=== PATIENT | female | born 1945 | race Caucasian/White ===

== ENCOUNTER → 2016-10-09 | Outpatient (CLI) | payer MEDICARE ==
[2016-10-09 13:15] VITALS: BP 151/78; PULSE 81; RESP 16; TEMP 97
--- NOTE | 2016-10-10 14:05 | P.PN ---
Subjective This is follow-up visit for this patient with a history of severe and chronic low back pain secondary to lumbar degenerative disc diseases , lumbar spondylosis with facet arthropathy, failed back surgery syndrome , sacroiliitis , status post left sacroiliac joint steroid injection , she get good pain relief after the injection, today she is complaining of increased severe low back pain bilaterally, more on the right side, is, currently taking these medications 1-mobic 15 mg daily 2- ultram 50 mg every 6 hours Patient denies any side effects of the medication, denies excessive drowsiness or sleepiness, denies suicidal ideation, and reports that the current pain medication is NOT helping To control the pain and improve activity of daily living Patient denies any motor or sensory deficit , patient denies any fever or night sweats, denies any change in the bowel movements or urination Physical Examinations : 1-Constitutiona : Cooperative , not in acute distress . 2-HEENT : nech ; supple , no Lymphadenopathy , no Thyromegaly , normal thyroid size . eyes : no ptosis , no icterus, no photophobia . ENT : normal of hearing , normal oropharynx , no Thrush . 3- Respiratory : Chest clear to auscultations Bilaterally , no wheezing , no Rhonchi . 4- Cardiovascular : regular rate and rhythem , S1 , S2 , no S3 , no S4. 5- Gastrointestinal : abdomen soft no tenderness , bowel sounds positive all four quadrents , no organomegally . 6- Genitourinary : Defferred . 7- neurologic : Cranial nerve II to XII intact , no focal neurological deffecit . 8-psychatric : alert , oriented X 3 , appropriate affect , intact judgment and insight . 9-Lymphatic : no Lymphadenopathy . 10- musculoskeltal : exams of the cervical spine = motor strength normal bilateral upper extremit exams of the Lumber spine = motor strength lower extremities ,thigh and legs .5/5 deep tendon reflexes : normal Knee Jerk , normal ankle Jerk . lumber facet Loading Test positive strait leg raising test positive at 30 degree , RT ,LT , Fabere test positive RT and positive LT . Range of motion: Range of motion in flexion of the lumbar spine 30 degrees Range of motion range of motion of extension of the lumbar spine 10 Sever tenderness over the Sacroiliac joint on the Right , and Left side Assessment and plan = - Chronic low back pain secondary to lumbar degenerative disc disease , lumbar spondylosis with facet arthropathy without myelopathy , - Bilateral sacroiliitis - diagnoses, prognosis, and treatment options including but not limited to physical therapy, surgical interventions, interventional therapies , and medication management including narcotics and adjuvant medication were discussed with the patient and all The questions answered, and will be scheduled to have bilateral sacroiliac joint steroid injection fluoroscopy guidance, if she gets good pain relief, consider doing radiofrequency ablation of the sacroiliac joint, meanwhile patient should continue getting Her pain medication from her primary care Objective - Vital Signs Vital signs: Vital Signs Temp 97 F L 10/09/16 13:04 Pulse 81 10/09/16 13:04 Resp 16 10/09/16 13:04 BP 151/78 10/09/16 13:04 Pulse Ox 96 10/09/16 13:04 Intake & Output 10/09/16 10/10/16 10/10/16 18:59 06:59 18:59 Weight 113.398 kg
== END | disposition home or self-care (01) ==
LOC: PNWHC3 12:45
PROVIDERS: ATTEND Specialist
DX: M51.36 Other intervertebral disc degeneration, lumbar region (principal); M47.816 Spondylosis without myelopathy or radiculopathy, lumbar region; M46.86 Other specified inflammatory spondylopathies, lumbar region; M46.1 Sacroiliitis, not elsewhere classified; G89.29 Other chronic pain
CPT/HCPCS: 99211

== ENCOUNTER 2016-10-13 12:20 | Day surgery (SDC) | payer MEDICARE ==
[2016-10-12 09:51] VITALS: BMI 38.5
[~2016-10-13 12:20] MED LIST: LACTATED RINGERS 1,000 ML IV SCH
[2016-10-13] MEDS ORDERED: LIDOCAINE 1% 20 ML VIAL (10MG/ML) FOR IV START INTRADERMA ONE (12:53)
[2016-10-13 13:06] VITALS: RESP 16; TEMP 97.8
[2016-10-13] MEDS ORDERED: MIDAZOLAM 2 MG/2 ML VIAL ONE (13:45)
[2016-10-13] MEDS ORDERED: BUPIVACAINE (PF) 0.75% 30 ML VIAL ONE (13:45)
[2016-10-13] MEDS ORDERED: fentaNYL (PF) 50 MCG/ML 2 ML AMP ONE (13:45)
[2016-10-13] MEDS ORDERED: TRIAMCINOLONE ACETONIDE 40 MG/ML 1 ML VIAL ONE (13:45)
--- NOTE | 2016-10-13 14:07 | P.PCN ---
Date of Procedure: 10/13/16 Procedure(s) Performed: Preoperative diagnoses= 1-bilateral sacroiliitis. 2- lumbar spondylosis with lumbar facet arthropathy. 3- failed back surgeries syndrome lumbar area Postoperative diagnoses= same as preoperative diagnosis. Procedure= bilateral sacroiliac joint steroid injection under fluoroscopic guidance. Anesthesia= conscious sedation with Versed 2 mg and fentanyl 100 micrograms and local infiltration with lidocaine 1% 4 ml Estimated blood loss=minimal. Procedure indication= the patient had a history of severe chronic low back pain , diagnosed with sacroiliitis and lumbar sacral facet arthropathy unresponsive to conservative treatment. Procedure description= the patient was seen and identified in the preoperative holding area, risks and benefits and alternative of the procedure and possible complications discussed with the patient, and he agreed with the preceding, patient signed the consent, an IV was started, and vital signs were monitored and were stable throughout the procedure, patient was placed in the prone position or table and the lumbosacral area was prepped and draped with a sterile fashion, vital signs were closely monitored during the procedure, the fluoroscopy camera was placed in the contralateral oblique view on the right sacroiliac joint and the lower part of the joint was identified, local infiltration of the skin and subcutaneous tissue with lidocaine 1% 2 mL then a 22-gauge Quincke-type spinal needle advanced slowly under fluoroscopy and placed in the posterior and inferior border of the right sacroiliac joint, placement confirmed with AP and lateral view, and after appropriate needle placement confirmed and after negative aspiration for heme and CSF and there was no paresthesia during the injection, 3 ml of Marcaine 0.5% and 40 mg of Kenalog injected after negative aspiration, the needle removed, and the entire same procedure was repeated for the left sacroiliac joint Patient tolerated the procedure well without any complication, The patient returned to supine position after the back was cleaned and a Band- Aid applied, the patient transported to recovery room in stable condition and he was monitored for 30 minutes before he was discharged home and then patient was reexamined before going home and patient was discharged in stable condition and patient will follow up with the pain clinic in a few weeks
[2016-10-13] MEDS ORDERED: IV FLUID CONTINUATION 1,000 ML IV ONE (14:15)
[2016-10-13 14:44] VITALS: BP 136/74; PULSE 81
--- NOTE | 2016-10-17 17:58 | FL ---
EXAMINATION TYPE: FL guided pain mgmt statistic DATE OF EXAM: 10/13/2016 2:11 PM CLINICAL HISTORY: Low back and sacroiliac joint pain. TECHNIQUE: Fluoroscopy. COMPARISON: None. FINDINGS: Fluoroscopic guidance was provided during pain relief procedure performed by Dr. Beltran . A total of 12 seconds of fluoroscopic time was utilized during the procedure and two spot images a re acquired. Images acquired shows needle localization at level of bilateral sacroiliac joints. IMPRESSION: As Above.
== END 2016-10-13 15:00 | disposition home or self-care (01) ==
LOC: ORPAIN 12:20
PROVIDERS: ATTEND Specialist
DX: M46.1 Sacroiliitis, not elsewhere classified (principal); M47.896 Other spondylosis, lumbar region; M46.96 Unspecified inflammatory spondylopathy, lumbar region; M96.1 Postlaminectomy syndrome, not elsewhere classified; Z88.1 Allergy status to other antibiotic agents; Z91.030 Bee allergy status; Z91.041 Radiographic dye allergy status; Z91.09 Other allergy status, other than to drugs and biological substances
CPT/HCPCS: 99152; J2250; J3301; J3010; G0260

== ENCOUNTER 2016-11-13 06:16 | Day surgery (SDC) | payer MEDICARE ==
[2016-11-10 08:40] VITALS: BMI 38.5
[2016-11-13 06:43] VITALS: RESP 18; TEMP 97.5
[2016-11-13] MEDS ORDERED: LIDOCAINE 1% 20 ML VIAL (10MG/ML) FOR IV START INTRADERMA ONE (06:48)
[2016-11-13] MEDS ORDERED: MIDAZOLAM 2 MG/2 ML VIAL ONE (07:19)
[2016-11-13] MEDS ORDERED: fentaNYL (PF) 50 MCG/ML 2 ML AMP ONE (07:19)
[2016-11-13] MEDS ORDERED: BUPIVACAINE (PF) 0.5% 30 ML VIAL ONE (07:19)
[2016-11-13] MEDS ORDERED: DEXAMETHASONE SOD PHOSPHATE 10 MG/ML 1 ML VIAL ONE (07:19)
--- NOTE | 2016-11-13 07:31 | P.PCN ---
Date of Procedure: 11/13/16 Preoperative Diagnosis: Postoperative Diagnosis: Procedure(s) Performed: Preoperative diagnoses= 1-bilateral sacroiliitis. 2-lumbar spondylosis. 3- . Failed Back surgery syndrome and lumbar area Postoperative diagnoses= same as preoperative diagnosis. Procedure= bilateral sacroiliac joint steroid injection under fluoroscopic guidance. Anesthesia= conscious sedation with Versed 2 mg and fentanyl 100 micrograms and local infiltration with lidocaine 1% 4 ml Estimated blood loss=minimal. Procedure indication= the patient had a history of severe chronic low back pain , diagnosed with sacroiliitis and lumbar sacral facet arthropathy unresponsive to conservative treatment. Procedure description= the patient was seen and identified in the preoperative holding area, risks and benefits and alternative of the procedure and possible complications discussed with the patient, and he agreed with the preceding, patient signed the consent, an IV was started, and vital signs were monitored and were stable throughout the procedure, patient was placed in the prone position or table and the lumbosacral area was prepped and draped with a sterile fashion, vital signs were closely monitored during the procedure, the fluoroscopy camera was placed in the contralateral oblique view on the right sacroiliac joint and the lower part of the joint was identified, local infiltration of the skin and subcutaneous tissue with lidocaine 1% 2 mL then a 22-gauge Quincke-type spinal needle advanced slowly under fluoroscopy and placed in the posterior and inferior border of the right sacroiliac joint, placement confirmed with AP and lateral view, and after appropriate needle placement confirmed and after negative aspiration for heme and CSF and there was no paresthesia during the injection, 3 ml of Marcaine 0.5% and 10 mg Dexamethasone injected after negative aspiration, the needle removed, and the entire same procedure was repeated for the left sacroiliac joint Patient tolerated the procedure well without any complication, The patient returned to supine position after the back was cleaned and a Band- Aid applied, the patient transported to recovery room in stable condition and he was monitored for 30 minutes before he was discharged home and then patient was reexamined before going home and patient was discharged in stable condition and patient will follow up with the pain clinic in a few weeks Implants: Indications for Procedure: Operative Findings: Description of Procedure:
[2016-11-13] MEDS ORDERED: IV FLUID CONTINUATION 1,000 ML IV ONE (07:38)
--- NOTE | 2016-11-13 07:39 | FL ---
EXAMINATION TYPE: FL guided pain mgmt statistic DATE OF EXAM: 11/13/2016 HISTORY: Flouroscopy time 7 seconds of fluoroscopy provided. IMPRESSION: 1. Fluoroscopy time.
[2016-11-13 07:41] VITALS: PULSE 81
[2016-11-13 07:57] VITALS: BP 143/69
== END 2016-11-13 08:27 | disposition home or self-care (01) ==
LOC: ORPAIN 06:16
PROVIDERS: ATTEND Specialist
DX: G89.29 Other chronic pain (principal); M46.1 Sacroiliitis, not elsewhere classified; M47.896 Other spondylosis, lumbar region; M96.1 Postlaminectomy syndrome, not elsewhere classified; M46.96 Unspecified inflammatory spondylopathy, lumbar region; E66.01 Morbid (severe) obesity due to excess calories; Z88.1 Allergy status to other antibiotic agents; Z91.030 Bee allergy status; Z91.041 Radiographic dye allergy status; Z88.8 Allergy status to other drugs, medicaments and biological substances; Z91.048 Other nonmedicinal substance allergy status
CPT/HCPCS: J2250; J1100; J3010; G0260

== ENCOUNTER → 2016-12-26 | Outpatient (CLI) | payer MEDICARE ==
[2016-12-26 13:19] VITALS: BP 133/74; PULSE 94; RESP 18; TEMP 98.2
--- NOTE | 2016-12-26 14:03 | P.PN ---
Progress Note - Text Patient returns for followup for chronic back pain without significant radiation to lower extremities. Patient underwent SIJ injections x 2, with excellent relief from first and very poor relief from second. Patient continues on only Mobic medications from PCP for pain with some relief. Patient continues . Patient denies adverse drug effects from medications. Today, pt denies new-onset weakness, bowel/bladder incontinence, or any other signs or symptoms of cauda equina syndrome. There are no signs of acute intoxication, and no indications of medication diversion or overuse. In addition to above, 13-point review of systems is also negative for chest pain , shortness of breath, changes in vision, changes in hearing, new onset weakness , abdominal pain, diarrhea, extreme fatigue, malaise, fever, skin changes, homicidal or suicidal ideation, or bowel or bladder incontinence. Vital Signs: Reviewed in EMR Gen: WDWN, AAOx3, NAD HEENT: NCAT, EOMI, hearing grossly normal Pulm: resp unlabored Abd: soft, NT, ND Neck: supple, trachea midline ROM in flexion lumbar spine: reduced ROM in extension lumbar spine: reduced Lumbar paravertebral tenderness: + Facet loading: ++ bilaterally SI joint tenderness: + R >> L side Wilner's: ++ R > L Neuro: CN II-XII grossly intact, muscle strength lower extremities PRESERVED Imaging: Reviewed in EMR Assessment: 1. lumbar spondylosis without myelopathy 2. sacroiliac joint dysfunction 3. chronic pain syndrome Plan: 1. Explanation: Opioid and psychological risk scores were reviewed. Diagnoses , prognoses, and multiple treatment options including but not limited to physical therapy, interventional therapies, adjuvant medical therapies, narcotic medication therapies, and surgery were discussed with the patient and all questions were answered to the patient's satisfaction. 2. Opioid agreement: no narcotics prescribed 3. Counseling: The patient was counseled extensively on BODY MASS INDEX and EXERCISE. Specifically, the patient was instructed regarding the importance of smoking cessation, obesity, and exercise in the context of both chronic pain and overall health. 4. Procedures: bilateral SIJ injection #2, then schedule RFA if relief 5. Consultations: None 6. Investigations: none 7. Medications: None prescribed 8. Disposition: f/u for procedure as scheduled PQRS measures: 1-Patient's medications are documented in the chart. 2-Tobacco use is positive, counseling given 3-Patient has had a pneumococcal vaccine. 4-Advanced care planning discussed, patient unable to give. 5-Opioid contract signed with the patient. 6-Pain positive, follow-up visit or procedure scheduled 7-Patient's blood pressure measured and documented, within normal limits. 8-Patient's weight was measured, and body mass index ABOVE the normal limits, and counseling was done. Patient instructed to follow up with PCP. 9-Patient WAS NOT identified as an unhealthy alcohol user.
== END | disposition home or self-care (01) ==
LOC: PNWHC3 13:00
PROVIDERS: ATTEND Anesthesiology
DX: M47.816 Spondylosis without myelopathy or radiculopathy, lumbar region (principal); M53.3 Sacrococcygeal disorders, not elsewhere classified; G89.4 Chronic pain syndrome; Z79.1 Long term (current) use of non-steroidal anti-inflammatories (NSAID)
CPT/HCPCS: 99211

== ENCOUNTER 2017-11-05 07:52 | Day surgery (SDC) | payer MEDICARE ==
[2017-10-04 15:09] VITALS: BMI 39.1
[2017-11-05] MEDS ORDERED: LIDOCAINE 1% 20 ML VIAL (10MG/ML) FOR IV START INTRADERMA ONE (08:30)
[2017-11-05 08:32] VITALS: RESP 18; TEMP 97.7
--- NOTE | 2017-11-05 09:26 | P.PCN ---
Date of Procedure: 11/05/17 Procedure(s) Performed: Preoperative diagnoses= 1-bilateral sacroiliitis. 2-failed back surgery syndrome lumbar area. 3-lumbar degenerative disc disease Postoperative diagnoses= same as preoperative diagnosis. Procedure= bilateral sacroiliac joint steroid injection under fluoroscopic guidance. Anesthesia= moderate sedation with Versed 2 mg and fentanyl 100 micrograms and local infiltration with lidocaine 1% 4 ml Estimated blood loss=minimal. Procedure indication= the patient had a history of severe chronic low back pain , diagnosed with sacroiliitis and lumbar sacral facet arthropathy unresponsive to conservative treatment. Procedure description= the patient was seen and identified in the preoperative holding area, risks and benefits and alternative of the procedure and possible complications discussed with the patient, and he agreed with the preceding, patient signed the consent, an IV was started, and vital signs were monitored and were stable throughout the procedure, patient was placed in the prone position or table and the lumbosacral area was prepped and draped with a sterile fashion, vital signs were closely monitored during the procedure, the fluoroscopy camera was placed in the contralateral oblique view on the right sacroiliac joint and the lower part of the joint was identified, local infiltration of the skin and subcutaneous tissue with lidocaine 1% 2 mL then a 22-gauge Quincke-type spinal needle advanced slowly under fluoroscopy and placed in the posterior and inferior border of the right sacroiliac joint, placement confirmed with AP and lateral view, and after appropriate needle placement confirmed and after negative aspiration for heme and CSF and there was no paresthesia during the injection, 3 ml of Marcaine 0.5% and 40 mg of Kenalog injected after negative aspiration, the needle removed, and the entire same procedure was repeated for the left sacroiliac joint Patient tolerated the procedure well without any complication, The patient returned to supine position after the back was cleaned and a Band- Aid applied, the patient transported to recovery room in stable condition and he was monitored for 30 minutes before he was discharged home and then patient was reexamined before going home and patient was discharged in stable condition and patient will follow up with the pain clinic in a few weeks
[2017-11-05] MEDS ORDERED: IV FLUID CONTINUATION 1,000 ML IV ONE (09:48)
--- NOTE | 2017-11-05 09:51 | FL ---
Fluoroscopy HISTORY: Pain 27 seconds fluoroscopy time supplied to the referring clinician. 2 intraoperative C-arm images docum ent the procedure. See dictated report from anesthesia.
[2017-11-05 09:53] VITALS: BP 137/84; PULSE 75
== END 2017-11-05 10:25 | disposition home or self-care (01) ==
LOC: ORPAIN 07:52
PROVIDERS: ATTEND Specialist
DX: M46.1 Sacroiliitis, not elsewhere classified (principal); M96.1 Postlaminectomy syndrome, not elsewhere classified; M51.36 Other intervertebral disc degeneration, lumbar region; G89.29 Other chronic pain; M47.816 Spondylosis without myelopathy or radiculopathy, lumbar region; I10 Essential (primary) hypertension; E66.01 Morbid (severe) obesity due to excess calories; Z88.1 Allergy status to other antibiotic agents; Z91.030 Bee allergy status; Z91.041 Radiographic dye allergy status; Z68.39 Body mass index [BMI] 39.0-39.9, adult; Z86.718 Personal history of other venous thrombosis and embolism; Z85.41 Personal history of malignant neoplasm of cervix uteri
CPT/HCPCS: J2250; J3301; J3010; G0260; 99152

== ENCOUNTER 2017-12-17 06:54 | Day surgery (SDC) | payer MEDICARE ==
[2017-12-12 10:37] VITALS: BMI 39.1
[2017-12-17 07:43] VITALS: RESP 16; TEMP 97.8
[2017-12-17] MEDS ORDERED: LIDOCAINE 1% 20 ML VIAL (10MG/ML) FOR IV START INTRADERMA ONE (07:48)
--- NOTE | 2017-12-17 08:04 | P.PCN ---
Date of Procedure: 12/17/17 Surgeon: Jeff Rolon Description of Procedure: Procedure(s) Performed: Preoperative diagnoses= 1-bilateral sacroiliitis. 2-failed back surgery syndrome lumbar area. 3-lumbar degenerative disc disease Postoperative diagnoses= same as preoperative diagnosis. Procedure= bilateral sacroiliac joint steroid injection under fluoroscopic guidance. Anesthesia= moderate sedation with Versed 2 mg and fentanyl 100 micrograms and local infiltration with lidocaine 1% 4 ml Estimated blood loss=minimal. Procedure indication= the patient had a history of severe chronic low back pain , diagnosed with sacroiliitis and lumbar sacral facet arthropathy unresponsive to conservative treatment. Procedure description= the patient was seen and identified in the preoperative holding area, risks and benefits and alternative of the procedure and possible complications discussed with the patient, and he agreed with the preceding, patient signed the consent, an IV was started, and vital signs were monitored and were stable throughout the procedure, patient was placed in the prone position or table and the lumbosacral area was prepped and draped with a sterile fashion, vital signs were closely monitored during the procedure, the fluoroscopy camera was placed in the contralateral oblique view on the right sacroiliac joint and the lower part of the joint was identified, local infiltration of the skin and subcutaneous tissue with lidocaine 1% 2 mL then a 22-gauge 3.5 inch Quincke-type spinal needle advanced slowly under fluoroscopy and placed in the posterior and inferior border of the right sacroiliac joint, placement confirmed with AP and lateral view, and after appropriate needle placement confirmed and after negative aspiration for heme and CSF and there was no paresthesia during the injection, 3 ml of Ropivacaine 0.5% and 20 mg of Kenalog injected after negative aspiration, the needle removed, and the entire same procedure was repeated for the left sacroiliac joint Patient tolerated the procedure well without any complication. The total dose of steroids given in this procedure is 40 mg of Kenalog. The patient returned to supine position after the back was cleaned and a Band- Aid applied, the patient transported to recovery room in stable condition and he was monitored for 30 minutes before he was discharged home and then patient was reexamined before going home and patient was discharged in stable condition and patient will follow up with the pain clinic in a few weeks
[2017-12-17 08:36] VITALS: BP 113/65; PULSE 88
--- NOTE | 2017-12-17 09:18 | FL ---
EXAMINATION TYPE: FL guided pain mgmt statistic DATE OF EXAM: 12/17/2017 FLUOROSCOPY Fluoroscopy time of 11 seconds was used during bilateral SI joint injection. 2 image/s document/s th e procedure.
== END 2017-12-17 08:56 | disposition home or self-care (01) ==
LOC: ORPAIN 06:54
PROVIDERS: ATTEND Anesthesiology
DX: G89.29 Other chronic pain (principal); M46.1 Sacroiliitis, not elsewhere classified; M96.1 Postlaminectomy syndrome, not elsewhere classified; M51.36 Other intervertebral disc degeneration, lumbar region; I10 Essential (primary) hypertension; J45.909 Unspecified asthma, uncomplicated; E66.01 Morbid (severe) obesity due to excess calories; Z68.39 Body mass index [BMI] 39.0-39.9, adult; Z88.8 Allergy status to other drugs, medicaments and biological substances; Z91.09 Other allergy status, other than to drugs and biological substances; Z88.1 Allergy status to other antibiotic agents
CPT/HCPCS: J2250; J3301; J3010; G0260; 99152

== ENCOUNTER → 2018-01-02 | Outpatient (CLI) | payer MEDICARE ==
[2018-01-02 13:29] VITALS: BP 139/78; PULSE 88; RESP 20; TEMP 98.1
--- NOTE | 2018-01-03 08:05 | P.PAINPG ---
Subjective Progress Note Date: 01/02/18 Principal diagnosis: Is a very pleasant 72-year-old woman with a history of significant back pain and previous back surgery who presents today for treatment of her low back pain. She reports that her pain has been significant recently she did receive some benefit from her previous sacroiliac joint injections. Objective - Vital Signs Vital signs: Vital Signs Temp 98.1 F 01/02/18 13:18 Pulse 88 01/02/18 13:18 Resp 20 01/02/18 13:18 BP 139/78 01/02/18 13:18 Pulse Ox Intake & Output 01/02/18 01/03/18 01/03/18 18:59 06:59 18:59 Weight 113.398 kg - Exam General: Patient is not sedated. She appears in no acute distress. She answers all questions appropriate. Respiratory: Breathing is unlabored and without any audible wheezes Cardiac: Regular in rate and rhythm Abdomen: Soft nontender, nondistended Extremities: No cyanosis clubbing or edema Musculoskeletal: No focal motor deficits in the upper or lower extremities. She walks with a hunched over gait. She is unable to assume a fully erect position. Neurologic: No focal sensory deficits in the upper or lower extremities. Reflexes are normal and intact bilaterally in the extremities Assessment and Plan (1) Bilateral sacroiliitis Narrative/Plan: Medications: We will trial the patient on tramadol. I will give her prescription for 1 tablet twice a day when necessary. She will sign the [place] start talking form today. I reviewed her mouse and it reveals expected results. Interventions: I believe the patient would benefit from radio frequency ablation of the sacroiliac joint. We'll schedule this for her in the future. Referrals: None Testing ordered: None Psychological: No referrals given today. Current Visit: Yes Status: Acute Code(s): M46.1 - SACROILIITIS, NOT ELSEWHERE CLASSIFIED SNOMED Code(s): 81353535 (2) Lumbar post-laminectomy syndrome Current Visit: Yes Status: Acute Code(s): M96.1 - POSTLAMINECTOMY SYNDROME, NOT ELSEWHERE CLASSIFIED SNOMED Code(s): 065618087 PQRS Measure Charge Sheet Measure #130: Documentation of Current Meds in Medical Chart: Patient's medications documented in chart Measure #226: Tobacco Use: Screen & Cessation Intervention: Pt not a tobacco user Measure #111: Pneumonia Vaccination: Pneumococcal vaccine NOT administered or previously given Measure #47: Advance Care Plan: Advance care planning discussed & documented, pt chose/unable to give Measure #412: Opioid Treatment Agreement: Documented signed opioid trtmnt agreemnt min once during opioid trtmnt Measure #408: Opioid Therapy Follow-up Evaluation: Patient had f/u eval minimum every 3 months during opioid therapy Measure #317: Preventitive Care & Scrn High Bld Press & F/U: Pre-hypertensive or hypertensive BP documented, pt will f/u with PCP Measure #128: Body Mass Index (BMI) Screening & Follow-up: BMI documented ABOVE normal parameters - f/u documented Measure #131: Pain Assessment & Follow-up: Pain positive & plan documented Measure #431: Unhealthy Alcohol Use Preventative Care & Scrn: Patient not identified as an unhealthy alcohol user PQRS Narrative: Smoking Status Current some day smoker Do You Want the Pneumonia Vaccine Up to Date Vaccine AT THIS TIME? Blood Pressure 139/78 Pain Intensity [Lower Back] 4 Scale Used Numeric (1 - 10) Hx Alcohol Use (MH) No Home Medications: Ambulatory Orders Thyroid,Pork [[place] Thyroid] 180 mg PO DAILY 12/16/13 Meloxicam [Mobic] 15 mg PO DAILY 08/10/14 Lisinopril [Prinivil] 20 mg PO DAILY 09/02/14 Fluticasone Nasal Spring [Flonase Nasal Spring] 2 spr EA NOSTRIL DAILY 08/11/15 Multivit-Min/Iron/Folic/Lutein [Centrum Silver Women Tablet] 1 each PO DAILY 09/17 Sennosides [Senna] 8.6 mg PO HS 03/07/16 Magnesium 500 mg PO DAILY 03/27/16 amLODIPine [Norvasc] 10 mg PO DAILY 10/09/16 Acetaminophen Tab [Tylenol Tab] 1,000 mg PO Q6HR PRN 10/13/16 cycloSPORINE [Restasis] 1 drop BOTH EYES DAILY 12/26/16 Controlled Substance Measures - Controlled Substance Measures Is patient prescribed a controlled substance at discharge?: Yes When asked, does pt state using other controlled substances?: No If prescribed controlled substance>3 days was MAPS reviewed?: Yes If Rx opioid, was Start Talking consent form obtained?: Yes
== END | disposition home or self-care (01) ==
LOC: PNWHC3 13:00
PROVIDERS: ATTEND Pain Medicine Pain Medicine
DX: M96.1 Postlaminectomy syndrome, not elsewhere classified (principal); M46.1 Sacroiliitis, not elsewhere classified; F17.200 Nicotine dependence, unspecified, uncomplicated; Z79.1 Long term (current) use of non-steroidal anti-inflammatories (NSAID); Z79.899 Other long term (current) drug therapy
CPT/HCPCS: 99211

== ENCOUNTER 2018-02-11 06:23 | Day surgery (SDC) | payer MEDICARE ==
[2018-02-05 15:38] VITALS: BMI 38.8
[2018-02-11 07:14] VITALS: TEMP 98.3
[2018-02-11] MEDS ORDERED: LIDOCAINE 1% 20 ML VIAL (10MG/ML) FOR IV START INTRADERMA ONE (07:26)
--- NOTE | 2018-02-11 07:59 | P.PCN ---
Date of Procedure: 02/11/18 Surgeon: Jeff Rolon Disposition: PACU Description of Procedure: Pre and POSTOPERATIVE DIAGNOSIS: 1-Lumbosacral spondylosis 2-Bilateral sacroiliitis, and sacroiliac joint dysfunction 3-morbid obesity 4-failed back surgery syndrome PROCEDURES: 1. Left radiofrequency thermocoagulation/ablation of the L5 dorsal ramus. 2. Left multi-site radiofrequency thermocoagulation/ablation of the S1, S2, and S3 lateral branchs. The procedure was performed using fluoroscopic guidance during needle placement to assure proper position and maximize safety. . ANESTHESIA: Local Anesthesia, conscious sedation with Versed,and Fentanyl EBL: Negligible INDICATION/MEDICAL NECESSITY: History of low back pain secondary to Lumbosacral Spondylosis and lumbosacral arthropathy unresponsive to more conservative treatments. The patient reported more than 50% relief of pain symptoms following 2 previous diagnostic blocks with Bupivacaine. PROCEDURE DESCRIPTION: The patient was seen and identified in the preoperative area. Risks, benefits, complications, and alternatives were discussed with the patient. The patient agreed to proceed with the procedure and signed the consent. Vital signs were checked before and after the procedure and they remained stable. Patient ambulated to the procedure room and time out was completed. The patient was placed in the prone position on the procedure table and a pillow was placed under the abdomen to reduce lumbar lordosis. The lumbosacral area was prepped and draped in the usual sterile fashion. Critical pause was taken. L5 Dorsal Ramus RF: Using left oblique fluoroscopy, the junction of the transverse process and the superior articular process of the left S1 vertebra, which correspond to the fluoroscopic image of the "eye of the Bart dog" was identified. Subsequently, a 10-cm 18-gauge radiofrequency cannula with a 10-mm active tip was advanced under fluoroscopic guidance until contact was made with periosteum. At this level, Motor stimulation was done at 2 Hz with stimulation of mulitifidus muscle contration at 1.5 volts. No radicular symptoms or paresthesias were produced during the testing. Subsequently, the L5 dorsal ramus was subjected to a radiofrequency ablation at a mode of 90 seconds at 80 degrees Celsius after negative motor and sensory testing and after injecting with a solution consisting of 0.5% ropivacaine with 40 mg of Depo-Medrol 0.5 ml injected in each cannula S1, S3, and S3 Lateral Branch RF: The lateral margins of the left S1, S2, and S3 foramina were identified using AP fluoroscopy. Under fluoroscopic guidance, three 10-cm 18-gauge radiofrequency cannula with a 10-mm active tip were inserted at 8-10 mm peripheral to the posterior S1 foramen, at various locations using clock-face coordinates. The center of the clock was registered at the lateral margin of the foramen. The 6:30, 8:00, and 9:30 oclock positions were used. At this level , Motor stimulation was done at 2 Hz. No radicular symptoms or paresthesias were produced during the testing. Subsequently, the S1 lateral branch was subjected to a radiofrequency ablation at a mode of 90 seconds at 80 degrees Celsius at the 3 levels after negative motor testing and after injecting a solution consisting of 0.5% ropivacaine with 40 mg of Kenalog 0.5 ml injected in each cannula. The same procedure was performed at the level of the S2 foramen. For the S3 foramen, only the 6:30 and 8:00 oclock positions were used. Motor testing followed by radiofrequency ablation were performed as described for the S1 and S2 foramina. The needle was withdrawn intact after each injection. COMPLICATIONS: The patient tolerated the procedure well without any acute complications. DISPOSTION/PLAN: Patient was reexamined prior to discharge. Patient was observed for 30 minutes in the recovery area and was discharged home, accompanied by an adult, after meeting discharged criteria. Discharge instructions were give to the patient by the staff. Patient was specifically instructed not to drive today and to rest for the rest of the day. The patient will schedule a follow up visit in the clinic in 4 weeks.
[2018-02-11] MEDS ORDERED: IV FLUID CONTINUATION 750 ML IV ONE (08:09)
[2018-02-11 08:24] VITALS: BP 106/71; PULSE 79; RESP 16
--- NOTE | 2018-02-11 08:32 | FL ---
EXAMINATION TYPE: FL guided pain mgmt statistic DATE OF EXAM: 02/11/2018 HISTORY: Pain 29 sec fl time used during left si joint rfa
== END 2018-02-11 08:47 | disposition home or self-care (01) ==
LOC: ORPAIN 06:23
PROVIDERS: ATTEND Anesthesiology
DX: M47.817 Spondylosis without myelopathy or radiculopathy, lumbosacral region (principal); M46.1 Sacroiliitis, not elsewhere classified; M53.3 Sacrococcygeal disorders, not elsewhere classified; E66.01 Morbid (severe) obesity due to excess calories; Z68.38 Body mass index [BMI] 38.0-38.9, adult; M96.1 Postlaminectomy syndrome, not elsewhere classified; Z88.1 Allergy status to other antibiotic agents; Z91.041 Radiographic dye allergy status
CPT/HCPCS: 64635; 64636; J2250; J3301; J3010; 99152

== ENCOUNTER → 2018-04-03 | Outpatient (CLI) | payer MEDICARE ==
[2018-04-03 12:50] VITALS: BP 122/51; PULSE 85; RESP 18
--- NOTE | 2018-04-03 13:17 | P.PN ---
Subjective Progress Note Date: 04/03/18 This is a pleasant 72-year-old morbidly obese lady with history of chronic lower back pain due to lumbar spondylosis and degenerative disc disease. The patient has significant relief of her pain after the last lumbar medial branch RFA. She still uses tramadol twice a day if needed for her pain and she would like to get a back brace to help her with this pain when it exacerbates. Today, pt denies new-onset weakness, bowel/bladder incontinence, or any other signs or symptoms of cauda equina syndrome. There are no signs of acute intoxication, and no indications of medication diversion or overuse. In addition to above, 13-point review of systems is also negative for chest pain , shortness of breath, changes in vision, changes in hearing, new onset weakness , abdominal pain, diarrhea, extreme fatigue, malaise, fever, skin changes, homicidal or suicidal ideation, or bowel or bladder incontinence. Vital Signs: Reviewed in EMR Gen: AAOx3, NAD HEENT: PERRLA,hearing grossly normal Pulm: resp unlabored,CTA Heart:S1,S2, No Mur Neck: supple, trachea midline Neuro: CN II-XII grossly intact, Imaging: Reviewed in EMR/chart Assessment: Lumbar spondylosis without myelopathy Lumbar DDD Morbid obesity Plan: 1. Explanation: Opioid and psychological risk scores were reviewed. Diagnoses , prognoses, and multiple treatment options including but not limited to physical therapy, interventional therapies, adjuvant medical therapies, narcotic medication therapies, and surgery were discussed with the patient and all questions were answered to the patient's satisfaction. 2. Opioid agreement: Signed with the patient and the patient is warned not to use opioids while driving or before driving and not to combine opioids with benzodiazepines or alcohol. 3. Counseling: The patient was counseled extensively on SMOKING CESSATION, BODY MASS INDEX, EXERCISE. Specifically, the patient was instructed regarding the importance of smoking cessation, obesity, and exercise in the context of both chronic pain and overall health. 4. Procedures: None at this point 5. Consultations: None 6. Investigations: None 7. Medications: Tramadol 50 mg twice a day 8. Disposition: Return to clinic in 2 months 9. Maps were reviewed and were appropriate. Objective - Vital Signs Vital signs: Vital Signs Temp Pulse 85 04/03/18 12:38 Resp 18 04/03/18 12:38 BP 122/51 04/03/18 12:38 Pulse Ox 97 04/03/18 12:38 Intake & Output 04/02/18 04/03/18 04/03/18 18:59 06:59 18:59 Weight 113.398 kg
== END | disposition home or self-care (01) ==
LOC: PNWHC3 12:09
PROVIDERS: ATTEND Anesthesiology
DX: M51.36 Other intervertebral disc degeneration, lumbar region (principal); M47.816 Spondylosis without myelopathy or radiculopathy, lumbar region; E66.01 Morbid (severe) obesity due to excess calories; Z68.41 Body mass index [BMI] 40.0-44.9, adult; Z79.891 Long term (current) use of opiate analgesic
CPT/HCPCS: 99211

== ENCOUNTER → 2019-01-22 | Outpatient (CLI) | payer MEDICARE ==
[2019-01-22 11:55] VITALS: BP 110/72; PULSE 83; RESP 18; TEMP 97
--- NOTE | 2019-01-24 09:14 | P.PAINPG ---
Subjective Progress Note Date: 01/22/19 This is a pleasant 73-year-old morbidly obese lady with history of chronic lower back pain due to lumbar spondylosis and degenerative disc disease. We last saw the patient in March 2018. The patient has significant relief of her pain after the last SI joint RFA done on 02/11/2018. She uses tramadol when necessary, about 5-6 times a month with good benefit. She primarily takes it when she goes shopping or goes out to dinner. It significantly helps with function. She reports mild side effects in the form of "vagueness" but is able to tolerate this. She has stopped taking Tylenol as it was not providing any benefit. She has cut down on smoking, and is currently smoking about 1-5 cigarettes per day. She reports that she has some broken skin over the low lumbar area, and does not want to schedule a repeat SI radiofrequency ablation at this time, however she will call us to schedule. Today, pt denies new-onset weakness, bowel/bladder incontinence, or any other signs or symptoms of cauda equina syndrome. There are no signs of acute intoxication, and no indications of medication diversion or overuse. In addition to above, 13-point review of systems is also negative for chest pain, shortness of breath, changes in vision, changes in hearing, new onset weakness, abdominal pain, diarrhea, extreme fatigue, malaise, fever, skin changes, homicidal or suicidal ideation, or bowel incontinence. She does report chronic bladder incontinence. Physical exam: Vitals: Reviewed in EMR GENERAL: Morbidly obese, sitting in wheelchair PSYCH: Mood and affect is appropriate. Awake, alert, and oriented SKIN: Skin color, texture, turgor normal, no rashes or lesions. Patient did not want me to examine area of low back which she reports has a healing skin lesion. HEENT: Normocephalic, atraumatic. EOM intact CV: No pedal edema RESP: Respirations are unlabored, no audible wheezing GI: Abdomen obese MUSCULOSKELETAL: Bilateral lower extremity strength is normal and symmetric. No atrophy or tone abnormalities are noted. Lumbar spine: Straight leg raising in the sitting position is negative for radicular pain. Tenderness to palpation over the lumbar spine and paraspinous eye laterally muscles. Buttocks: Pain to palpation over bilateral PSIS, unable to perform Em test NEUR: No loss of sensation is noted. Cranial nerves grossly intact Assessment: Lumbar spondylosis without myelopathy Lumbar DDD Sacroiliitis Morbid obesity Chronic use of opioid medication Plan: 1. Explanation: Opioid and psychological risk scores were reviewed. Diagnoses, prognoses, and multiple treatment options including but not limited to physical therapy, interventional therapies, adjuvant medical therapies, narcotic medication therapies, and surgery were discussed with the patient and all questions were answered to the patient's satisfaction. 2. Opioid agreement: Signed with the patient and the patient is warned not to use opioids while driving or before driving and not to combine opioids with benzodiazepines or alcohol. 3. Counseling: The patient was counseled extensively on SMOKING CESSATION, BODY MASS INDEX, EXERCISE. Specifically, the patient was instructed regarding the importance of smoking cessation, obesity, and exercise in the context of both chronic pain and overall health. 4. Procedures: None at this point, patient will call to schedule SI radiofrequency ablation after her skin lesions have healed 5. Consultations: None 6. Investigations: None 7. Medications: Tramadol 50 mg when necessary- prescription given for 60 tablets. Her prior prescription for 60 tablets lasted her approximately 8-9 months. I instructed her to discuss with her primary care physician taking over this prescription. 8. Disposition: Return to clinic when necessary for above-mentioned procedure 9. Maps were reviewed and were appropriate. Objective - Vital Signs Vital signs: Vital Signs Temp 97 F L 01/22/19 11:47 Pulse 83 01/22/19 11:47 Resp 18 01/22/19 11:47 BP 110/72 01/22/19 11:47 Pulse Ox 95 01/22/19 11:47 PQRS Measure Charge Sheet Measure #130: Documentation of Current Meds in Medical Chart: Patient's medications documented in chart Measure #226: Tobacco Use: Screen & Cessation Intervention: Pt screened for tobacco use AND intervention given Measure #111: Pneumonia Vaccination: Pneumococcal vaccine administered or previously received Measure #47: Advance Care Plan: Advance care planning discussed & documented, pt chose/unable to give Measure #412: Opioid Treatment Agreement: Documented signed opioid trtmnt agreemnt min once during opioid trtmnt Measure #408: Opioid Therapy Follow-up Evaluation: Patient had NO f/u eval minimum every 3 months during opioid therapy Measure #317: Preventitive Care & Scrn High Bld Press & F/U: Normal blood pressure, f/u not required Measure #128: Body Mass Index (BMI) Screening & Follow-up: BMI documented ABOVE normal parameters - f/u documented Measure #131: Pain Assessment & Follow-up: Pain positive & plan documented, Follow-up PRN Measure #431: Unhealthy Alcohol Use Preventative Care & Scrn: Patient not identified as an unhealthy alcohol user PQRS Narrative: Smoking Status Current every day smoker Blood Pressure 110/72 Pain Intensity [Bilateral 6 Lower Back] Scale Used Numeric (1 - 10) Hx Alcohol Use (MH) No Home Medications: Ambulatory Orders Thyroid,Pork [[place] Thyroid] 180 mg PO DAILY 12/16/13 Lisinopril [Prinivil] 20 mg PO 2100 09/02/14 Fluticasone Nasal [place] [Flonase Nasal [place]] 2 spr EA NOSTRIL DAILY 08/11/15 Multivit-Min/Iron/Folic/Lutein [Centrum Silver Women Tablet] 1 each PO DAILY 03/07/16 Sennosides [Senna] 8.6 mg PO HS 03/07/16 Magnesium 500 mg PO DAILY 03/27/16 amLODIPine [Norvasc] 10 mg PO DAILY 10/09/16 traMADol HCL [Ultram] 25 - 50 mg PO BID PRN 01/09/18 Aspirin 325 mg PO DAILY PRN 04/03/18 Controlled Substance Measures - Controlled Substance Measures Is patient prescribed a controlled substance at discharge?: Yes When asked, does pt state using other controlled substances?: No If prescribed controlled substance>3 days was MAPS reviewed?: Yes If Rx opioid, was Start Talking consent form obtained?: Yes If opioid is for acute pain is fill amount 7 days or less?: No Was information provided regarding opioid addiction?: Yes
== END ==
LOC: PNWHC3 11:19
PROVIDERS: ATTEND Anesthesiology
DX: M47.816 Spondylosis without myelopathy or radiculopathy, lumbar region (principal); M51.36 Other intervertebral disc degeneration, lumbar region; M46.1 Sacroiliitis, not elsewhere classified; E66.01 Morbid (severe) obesity due to excess calories; Z79.891 Long term (current) use of opiate analgesic; F17.200 Nicotine dependence, unspecified, uncomplicated; Z79.899 Other long term (current) drug therapy; Z79.82 Long term (current) use of aspirin
CPT/HCPCS: 99211